=== PATIENT | male | born 1985 | race Caucasian/White ===

== ENCOUNTER 2019-04-21 20:57 | Emergency (ER) | payer BC, OTHER ==
[2019-04-21] MEDS ORDERED: Bacitracin Oint 1 GM U/D Packet TOP ONE (21:34)
--- NOTE | 2019-04-21 21:49 | EDM.PDOC ---
ED HPI GENERAL MEDICAL PROBLEM - General Chief Complaint: Laceration Stated Complaint: CUT HAND Time Seen by Provider: 04/21/19 21:39 - History of Present Illness INITIAL COMMENTS - FREE TEXT/NARRATIVE: HISTORY AND PHYSICAL: History of present illness: Patient 33-year-old white male presents concern laceration to his right hand is currently is doing [employer] work. Tetanus status to be determined he denies other trauma or concern Review of systems: As per history of present illness and below otherwise all systems reviewed and negative. Past medical history: As per history of present illness and as reviewed below otherwise noncontributory. Surgical history: As per history of present illness and as reviewed below otherwise noncontributory. Social history: No reported history of drug or alcohol abuse. Family history: As per history of present illness and as reviewed below otherwise noncontributory. Physical exam: HEENT: Atraumatic, normocephalic, pupils reactive, negative for conjunctival pallor or scleral icterus, mucous membranes moist, throat clear, neck supple, nontender, trachea midline. Lungs: Clear to auscultation, breath sounds equal bilaterally, chest nontender. Heart: S1S2, regular, negative for clicks, rubs, or JVD. Abdomen: Soft, nondistended, nontender. Negative for masses or hepatosplenomegaly. Negative for costovertebral tenderness. Pelvis: Stable nontender. Genitourinary: Deferred. Rectal: Deferred. Extremities: Patient has proximally 4 cm moderate depth laceration over the lateral aspect of his right hand there is no tendon involvement CMS in neurovascular exam are unremarkable. Neuro: Awake, alert, oriented. Cranial nerves II through XII unremarkable. Cerebellum unremarkable. Motor and sensory unremarkable throughout. Exam nonfocal. Diagnostics: None Therapeutics: Patient was anesthetized with 1% lidocaine without epinephrine irrigated with cold smokes 0.9 normal saline closed with 4-0 nylon interrupted suture bacitracin dressing was applied Impression: #1 hand injury ( laceration) Definitive disposition and diagnosis as appropriate pending reevaluation and review of above. Right Hand Pain Score (Numeric/FACES): 3 - Related Data Allergies Allergy/AdvReac Type Severity Reaction Status Date / Time No Known Allergies Allergy Verified 04/21/19 21:25 Home Meds: Home Meds . [No Known Home Meds] 04/21/14 [History] Past Medical History Musculoskeletal History: Reports: Other (See Below) Other Musculoskeletal History: club foot - Infectious Disease History Infectious Disease History: Reports: Chicken Pox - Past Surgical History Musculoskeletal Surgical History: Reports: Other (See Below) Other Musculoskeletal Surgeries/Procedures:: club foot Social & Family History - Family History Family Medical History: Noncontributory - Tobacco Use Smoking Status *Q: Never Smoker Second Hand Smoke Exposure: No - Alcohol Use Days Per Week of Alcohol Use: 6 Number of Drinks Per Day: 1 Total Drinks Per Week: 6 - Recreational Drug Use Recreational Drug Use: No ED ROS GENERAL - Review of Systems Review Of Systems: ROS reveals no pertinent complaints other than HPI. ED EXAM, SKIN/RASH Exam: See Below (The dictation) Course - Vital Signs Last Recorded V/S: Last Vital Signs Temp 36.6 C 04/21/19 21:19 Pulse 68 04/21/19 21:19 Resp 14 04/21/19 21:19 BP 119/79 04/21/19 21:19 Pulse Ox 98 04/21/19 21:19 - Orders/Labs/Meds Meds: Medications Discontinued Medications Generic Name Dose Route Start Last Admin Trade Name Acosta PRN Reason Stop Dose Admin Bacitracin 1 dose 04/21/19 21:34 Bacitracin Oint 1 Gm TOP 04/21/19 21:35 ONETIME ONE Lidocaine HCl 5 ml 04/21/19 21:34 Xylocaine-Mpf 1% INJECT 04/21/19 21:35 ONETIME ONE Departure - Departure Time of Disposition: 21:48 Disposition: Home, Self-Care 01 Condition: Good Clinical Impression: Laceration - Discharge Information Referrals: PCP,None [Primary Care Provider] - Additional Instructions: The following information is given to patients seen in the emergency department who are being discharged to home. This information is to outline your options for follow-up care. We provide all patients seen in our emergency department with a follow-up referral. The need for follow-up, as well as the timing and circumstances, are variable depending upon the specifics of your emergency department visit. If you don't have a primary care physician on staff, we will provide you with a referral. We always advise you to contact your personal physician following an emergency department visit to inform them of the circumstance of the visit and for follow-up with them and/or the need for any referrals to a consulting specialist. The emergency department will also refer you to a specialist when appropriate. This referral assures that you have the opportunity for followup care with a specialist. All of these measure are taken in an effort to provide you with optimal care, which includes your followup. Under all circumstances we always encourage you to contact your private physician who remains a resource for coordinating your care. When calling for followup care, please make the office aware that this follow-up is from your recent emergency room visit. If for any reason you are refused follow-up, please contact the [facility] emergency department at and asked to speak to the emergency department charge nurse. Wound care is discussed suture removal 10-14 days return as needed as discussed
== END 2019-04-21 22:12 | disposition home or self-care (01) ==
LOC: MW.ED 20:57
DX: S61.411A Laceration without foreign body of right hand, initial encounter (principal); W26.8XXA Contact with other sharp object(s), not elsewhere classified, initial encounter
CPT/HCPCS: 12002; 99282; J2001

== ENCOUNTER 2022-04-07 23:34 | Emergency (ER) | payer OTHER ==
[2022-04-08] MEDS ORDERED: Ondansetron 4 MG/2 ML SDV IVPUSH ONE (01:54)
[2022-04-08] MEDS ORDERED: Sodium Chloride 0.9% 10 ML Syringe FLUSH PRN (01:54)
[2022-04-08] MEDS ORDERED: Ketorolac 30 MG/ML SDV IVPUSH ONE (01:54)
[2022-04-08] MEDS ORDERED: Sodium Chloride 0.9% 2.5 ML Syringe FLUSH PRN (01:54)
[2022-04-08] MEDS ORDERED: Sodium Chloride 0.9% 1,000 ML IV ONE (01:54)
[2022-04-08 02:29] LABS: CARBON DIOXIDE,CO2 22.2 mmol/L (21.0-32.0); POTASSIUM,K 3.8 mmol/L (3.5-5.1)
== END 2022-04-08 05:11 | disposition home or self-care (01) ==
LOC: MW.ED 23:34
DX: K80.50 Calculus of bile duct without cholangitis or cholecystitis without obstruction (principal)
CPT/HCPCS: 36415; 76705; 80053; 83690; 85025; 96361; 96374; 96375; 99285; J1885; J2405; J3490; J7030; 99284